=== PATIENT | male | born 1960 | race Caucasian/White ===

== ENCOUNTER 2023-04-05 23:12 | Emergency (ER) | payer MEDICARE, SELFPAY ==
--- NOTE | 2023-04-05 23:00 | RT.EKG_ITS ---
APPROVED REPORT Exam: Resting ECG Reason for Exam: bandar Patient Location: E HR:93 bpm ECG Measurements Heart Rate 93 AXIS MD 196 P 31 QRSd 79 QRS 6 QT 346 T 44 QTc 431 Conclusion Sinus rhythm...normal P axis, V-rate 60- 99
[2023-04-05 23:11] VITALS: BP 150/97; PULSE 98; RESP 18; TEMP 36.6; O2SAT 93
[2023-04-05 23:34] VITALS: BP 141/87; PULSE 97; PULSE 98; RESP 16; O2SAT 91
[2023-04-05 23:35] VITALS: PULSE 100; RESP 22; O2SAT 90
[2023-04-05 23:40] VITALS: PULSE 98; RESP 21; O2SAT 92
--- NOTE | 2023-04-05 23:45 | DI.CT_ITS ---
Exam(s) CT HEAD WO EXAM: CT HEAD WO CLINICAL HISTORY: post seizure. TECHNIQUE: Imaging Protocol: Axial computed tomography images with coronal and sagittal reformatted images were created and reviewed COMPARISON: No exams were available for comparison FINDINGS: There are no skull fractures. There is evidence left maxillary sinus anterior wall fracture repair. Not completely included in the field view. There is mucosal thickening in the left maxillary sinus. Right maxillary sinus is clear. Other paranasal sinuses and mastoid air cells are clear. There is no evidence of intracranial hemorrhage, mass effect, or shift of midline structures. There are no extra-axial fluid collections. The ventricles are not enlarged or shifted and there is no blo od within the ventricular system nor within the basal cisterns. IMPRESSION: No acute intracranial findings on this noninfused CT scan of the brain. RADIATION DOSE DELIVERED: 850.42mGy.cm Total DLP DATA REPOSITORY: All CT scans at this facility are submitted to the National Radiology Data Registry (NRDR) Dose Index Registry (DIR) with the [employer] ([employer]). RADIATION OPTIMIZATION: All CT scans at this facility use at least one of these dose optimization te chniques: automated exposure control; mA and/or kV adjustment per patient size (includes targeted exa ms where dose is matched to clinical indication); or iterative reconstruction.
[2023-04-05 23:46] VITALS: BP 126/79; PULSE 91; PULSE 92; RESP 17; O2SAT 91
[2023-04-05 23:50] VITALS: PULSE 95; RESP 20; O2SAT 92
[2023-04-05 23:56] LABS: Abs Immature Grans 0.04 10^3/uL (0.0-0.06); Absolute Basophil Count 0.04 10^3/uL (0.0-0.2); Absolute Eosinophil Count 0.13 10^3/uL (0.0-0.7); Absolute Lymphocyte Count 2.62 10^3/uL (1.2-3.4); Absolute Monocyte Count 0.57 10^3/uL (0.1-0.8); Absolute Neutrophil Count 4.01 10^3/uL (1.2-6.7); Basophils % 0.5; Eosinophils % 1.8; HCT 42.8 % (40.0-50.0); HGB 14.2 g/dL (13.5-17.5); Immature Grans % 0.5; Lymphocytes % 35.4; MCH 31.1 pg (27.0-33.0); MCHC 33.2 % (32.0-36.0); MCV 94 fL (80-95); MPV 10.3 fL (8.0-11.0); Monocytes % 7.7; Neutrophils % 54.1; Platelet Count 238 10^3/uL (130-400); RBC 4.57 10^6/uL (4.36-5.78); RDW 13.2 % (11.8-14.1); RDW-SD 45.5 fL; WBC 7.41 10^3/uL (4.4-10.8)
[2023-04-06] VITALS (13 sets, daily range): BP systolic 127; BP diastolic 78; PULSE 81–93; RESP 16–22; TEMP 36.6; O2SAT 87–95
[2023-04-06 00:08] LABS: Anion Gap 10.3 mmol/L (3-11); BUN 19 mg/dL (7-18); CO2 28.7 mmol/L (21.0-32.0); Calcium 9.8 mg/dL (8.5-10.1); Chloride 104 mmol/L (98-107); Estimated GFR 85.63 (mL/min/1.73m2); Glucose 168 mg/dL (74-106); Magnesium 1.8 mg/dL (1.8-2.4); Potassium 3.4 mmol/L (3.5-5.1); Sodium 143 mmol/L (136-145)
--- NOTE | 2023-04-06 01:30 | DI.VRAD_ITS ---
PROCEDURE INFORMATION: Exam: CT Head Without Contrast Exam date and time: 04/06/2023 12:18 AM Age: 62 years old Clinical indication: Other: Seizure TECHNIQUE: Imaging protocol: Computed tomography of the head without contrast. Radiation optimization: All CT scans at this facility use at least one of these dose optimization techniques: automated exposure control; mA and/or kV adjustment per patient size (includes targeted exams where dose is matched to clinical indication); or iterative reconstruction. COMPARISON: No relevant prior studies available. FINDINGS: Brain: No intracranial hemorrhage. No mass. No large territory acute CVA. Mild periventricular low attenuation bilaterally consistent with chronic small vessel ischemia. Cerebral ventricles: No ventriculomegaly. Paranasal sinuses: Previous left maxillary sinus anterior wall fracture repair. Mastoid air cells: Visualized mastoid air cells are well aerated. Bones/joints: Unremarkable cranium. No acute findings. No fractures. Soft tissues: Unremarkable. IMPRESSION: 1. No acute intracranial changes. 2. Mild atrophy and chronic small vessel ischemic changes. Dictated and Authenticated by: Jam Mary MD. Ordering:KAMRAN Beach MD
--- NOTE | 2023-04-06 01:35 | ED.GENADUL_ITS ---
Discharge Plan Disposition Patient Disposition: Home Discharge Details Clinical Impression: Seizure ED Provider: Yong Velazquez Home Meds and New Rx's Prescriptions: Continued metformin 500 mg Tablet 500 mg PO DAILY atorvastatin 20 mg Tablet 20 mg PO DAILY levothyroxine [Synthroid] 25 mcg Tablet 25 mcg PO cyclobenzaprine 5 mg Tablet 5 mg PO PRN omeprazole 20 mg Tablet,Delayed Release (Dr/Ec) 20 mg PO DAILY Discharge Instructions Instructions: Recurrent Seizures in Adults (ED) Medical Decision Making This patient presents with symptoms consistent with acute seizure, most likely due to sleep deprivation. I considered, but think less likely, secondary etiologies of epileptic seizures to include drug / toxin etiologies (ETOH, stimulants, medication side effects), metabolic disturbances (glucose, Na), acute TRIM SAWYER infections (meningitis, encephalitis, abscess), ICH / tumor / CVA. Presentation not consistent with impact seizure related to head trauma. Patient with no signs of trauma from the seizure. The post-ictal state resolved prior to discharge and the patient had returned to neurological baseline. patient was given strict seizure precautions. Patient to follow up with PMD. Differential Diagnosis Differential Diagnosis: Breakthrough seizure/intracranial lesion Medical Records Medical records reviewed: Yes I reviewed the patient's medical records. Imaging Data Radiologic Study: Attestation: I personally reviewed and interpreted this imaging study as follows: Imaging: CT Scan My impression: No gross pathology to my read Radiologist's impression: Mild atrophy no intracranial lesion or bleed Lab Data Lab results reviewed: Yes I reviewed the patient's lab results. HPI General Date/Time Provider Initiated Documentation: 04/05/23 23:45 . HPI Narrative: Patient with his seizure disorder history status post head injury many years ago. States that he does not have seizures frequently. Last follow-up with neurology was 4 years ago with imaging. Controls his seizures with CBD products. States that he is markedly sleep deprived over the past couple days and believes this was the trigger for seizure. Noted to not be generalized partial. Was in his usual state of health earlier. Did not have an MRI. No loss of consciousness no head injury. Related Data Home Medications Medication Instructions Recorded Confirmed atorvastatin 20 mg tablet 20 mg PO DAILY 04/05/23 04/05/23 cyclobenzaprine 5 mg tablet 5 mg PO PRN 04/05/23 levothyroxine 25 mcg tablet 25 mcg PO 04/05/23 (Synthroid) metformin 500 mg tablet 500 mg PO DAILY 04/05/23 04/05/23 omeprazole 20 mg tablet,delayed 20 mg PO DAILY 04/05/23 04/05/23 release Allergies Allergy/AdvReac Type Severity Reaction Status Date / Time CT dye Allergy Uncoded 04/05/23 23:18 General Stated Complaint: Seizure DELFINO: 2 Review of Systems Narrative: REVIEW OF SYSTEMS: CONST: Negative for fever, body aches and chills. HENT: Negative for neck pain/stiffness, headache, congestion, sore throat, swelling. EYES: Negative for discharge/pain or vision changes. RESP: Negative for cough/hemoptysis and shortness of breath. CV: Negative chest pain, difficulty breathing, palpitations. ABD: Negative pain, nausea, vomiting. : Negative increase frequency, dysuria, blood in urine or stool. MUSC: Negative for muscle aches, edema. SKIN: Negative rash, lesions/sores. NEURO: Negative headache, dizziness, weakness. PFSH All Active Problems (Updated 04/06/23 @ 01:37 by Yong Velazquez MD) Seizure (Acute) Social History Smoking/Tobacco Use Status: Never Smoking risk assessment performed?: Yes Alcohol Intake: never Substance use type: does not use Details: cbd oil Exam Narrative Exam Narrative: GENERAL APPEARANCE NAD, activity normal for age, well developed/ well nourished, no cyanosis, pallor, or diaphoresis. EYES lids/conjunctiva normal. EARS/NOSE/THROAT Mucous membranes moist, nares normal, lips/teeth normal uvula midline without oral pharyngeal erythema, exudate or swelling No lymphangitis/lymphedema. HEAD/NECK normocephalic atraumatic, no facial trauma, neck is supple. RESPIRATORY respiratory effort normal, speaks in full sentences, no tripod position, no accessory muscle use. Lungs clear to auscultation without rhonchi, wheezes, rales CARDIAC Regular rate and rhythm, no edema. ABDOMINAL Soft, ND/NT. No evidence of fluid wave. No pulsatile masses on exam, rebound tenderness, Jacobson sign or pain over Mcburney's point. MUSCLES/EXTREMITIES No abnormal range of motion, no swelling. SKIN Warm, pink and dry. No rashes, dermatoses, petechiae or lesions. NEUROLOGICAL Speech is clear and appropriate. Normal level of consciousness. Gait and coordination are normal. 5/5 strength in all extremities. PSYCH Normal mood and affect. Judgement/competence is appropriate Course Vital Signs Vital signs: Vital Signs Temperature 36.6 C 04/05/23 23:11 Pulse 98 H 04/05/23 23:11 Respiratory Rate 18 04/05/23 23:11 Blood Pressure 150/97 H 04/05/23 23:11 Pulse Oximetry 93 04/05/23 23:11 Temperature 36.6 C 04/05/23 23:11 Temperature Source Temporal Artery Scan 04/05/23 23:11 Pulse 88 04/06/23 00:00 Pulse 86 04/06/23 01:10 Respiratory Rate 20 04/06/23 01:10 Respiratory Effort Normal 04/06/23 00:03 Respiratory Depth Normal 04/06/23 00:03 Respiratory Pattern Normal 04/06/23 00:03 Blood Pressure 127/78 04/06/23 00:00 Blood Pressure Mean 91 04/06/23 00:00 Blood Pressure Position Supine 04/05/23 23:11 Pulse Oximetry 87 L 04/06/23 01:10 Oxygen Delivery Method Room Air 04/05/23 23:11 Oxygen Flow Rate 0 04/05/23 23:11 Pain Level 3 04/05/23 23:11 Comment back hurts 04/05/23 23:11 Lab/Test Results Lab/Test Results: Laboratory Tests Range/Units 04/05/23 04/05/23 23:45 23:45 WBC (4.4-10.8) 10^3/uL 7.41 RBC (4.36-5.78) 10^6/uL 4.57 Hgb (13.5-17.5) g/dL 14.2 Hct (40.0-50.0) % 42.8 MCV (80-95) fL 94 MCH (27.0-33.0) pg 31.1 MCHC (32.0-36.0) % 33.2 RDW (11.8-14.1) % 13.2 Plt Count (130-400) 10^3/uL 238 MPV (8.0-11.0) fL 10.3 Immature Gran % 0.5 Neutrophils % 54.1 Lymphocytes % 35.4 Monocytes % 7.7 Eosinophils % 1.8 Basophils % 0.5 Nucleated RBC % (0.0-0.3) % 0.0 Absolute Neutrophils (1.2-6.7) 10^3/uL 4.01 Absolute Lymphocytes (1.2-3.4) 10^3/uL 2.62 Absolute Monocytes (0.1-0.8) 10^3/uL 0.57 Absolute Eosinophils (0.0-0.7) 10^3/uL 0.13 Absolute Basophils (0.0-0.2) 10^3/uL 0.04 Sodium (136-145) mmol/L 143 Potassium (3.5-5.1) mmol/L 3.4 L Chloride (98-107) mmol/L 104 Carbon Dioxide (21.0-32.0) mmol/L 28.7 Anion Gap (3-11) mmol/L 10.3 BUN (7-18) mg/dL 19 H Creatinine (0.70-1.30) mg/dL 1.0 Est GFR (CKD-EPI 2020) (mL/min/1.73m2) 85.63 Glucose (74-106) mg/dL 168 H Calcium (8.5-10.1) mg/dL 9.8 Magnesium (1.8-2.4) mg/dL 1.8
--- NOTE | 2023-04-06 14:28 | NUR.NOTE ---
Nursing Note: Accessed patient chart to determine how many EKG orders were in the chart from the ED. There was an outstanding EKG in ordered status. There are no EKG's in the [facility] system that are outstanding. One in Active status.
== END 2023-04-06 01:51 | disposition home or self-care (01) ==
LOC: ER 04-06 02:10
PROVIDERS: Emergency Provider Emergency Medicine
DX: R56.9 Unspecified convulsions (principal)
CPT/HCPCS: 36415; 36416; 80048; 82962; 93005; 99284; 70450; 83735; 85025; 93010